=== PATIENT | male | born 1985 | race Two or more races ===

== ENCOUNTER 2021-06-10 12:06 | Emergency (ER) | payer SELFPAY ==
[~2021-06-10] VITALS: Ht 165.1 cm; Wt 137.7 kg
[2021-06-10 18:20] VITALS: BP 174/92
[2021-06-10] MEDS ORDERED: CLINDAMYCIN HCL 150 MG CAPSULE. PO ONE (18:45)
[2021-06-10] MEDS ORDERED: CLIN300C9 PO (18:50)
--- NOTE | 2021-06-10 18:50 | ED.ADGEN ---
Past Medical History Past Surgical History: No Surgical History Smoking Status: Current Every Day Smoker Alcohol Use: Occasionally General Adult EDM: Chief Complaint: TOE PROBLEM HPI: HPI: Patient is a 35 year old male coming in for pain, redness, and swelling to his left great toe. Patient states that he take his work boot off and his toes itching with scratching it. Yesterday noticed redness of his toe has been getting worse. Denies any known injury. 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 No systemic complaints. No past medical history. Review of Systems: Review of Systems: All other systems within normal limits except for as noted in the HPI Current Medications: Current Medications Medications (Trade) Dose Ordered Sig/Johan Start Time Stop Time Status Last Admin Dose Admin Clindamycin HCl (Cleocin) 450 mg 1X ONCE 06/10/21 18:45 06/10/21 18:46 Allergies: Allergies: Allergies Coded Allergies Type Severity Reaction Last Updated Verified No Known Drug Allergies 06/10/21 No Physical Exam: PE: Constitutional: Well developed, well nourished, no acute distress, non-toxic appearance. [] HENT: Normocephalic, atraumatic, bilateral external ears normal, nose normal. [] Eyes: PERRLA, conjunctiva normal, no discharge. [] Neck: No rigidity, supple, no stridor. [] Cardiovascular: Regular rate and rhythm, brisk cap refill [] Lungs & Thorax: Non labored symmetric respirations, no tachypnea or respiratory distress [] Abdomen: Soft, nondistended. Skin: Warm, dry, erythema of left great toe [] Back: Unremarkable Extremities: No deformities, range of motion grossly intact, no lower extremity edema. Swelling of left great toe extending streaks to dorsum of foot, no purulent drainage able to be expressed. Nail unremarkable. No open wounds. No swelling of the meta tarsal phalangeal joint of great toe [] Neurologic: Alert and oriented X 3, no focal deficits noted. [] Psychologic: Affect normal, judgement normal, mood normal. [] Current Patient Data: Vital Signs: Vital Signs Date Time Temp Pulse Resp B/P (MAP) Pulse Ox O2 Delivery O2 Flow Rate FiO2 06/10/21 18:20 98.4 97 22 174/92 (119) 98 Room Air 98.4 EKG: EKG: [] Heart Score: C/O Chest Pain: No Risk Factors: Risk Factors: DM, Current or recent (<one month) smoker, HTN, HLP, family history of CAD, obesity. Risk Scores: Score 0 - 3: 2.5% MACE over next 6 weeks - Discharge Home Score 4 - 6: 20.3% MACE over next 6 weeks - Admit for Clinical Observation Score 7 - 10: 72.7% MACE over next 6 weeks - Early Invasive Strategies Radiology/Procedures: Radiology/Procedures: [] Course & Med Decision Making: Course & Med Decision Making No trauma and acute onset, no indication for imaging. Toe is warm to the touch. Discussed return precautions and first dose of antibiotics given the emergency department. Patient states he has no history of MRSA or abscess. No fluctuance or evidence of paronychia Lyndsay Disclaimer: Lyndsay Disclaimer: This electronic medical record was generated, in whole or in part, using a voice recognition dictation system. Departure Departure Impression: Primary Impression: Cellulitis of great toe of left foot Disposition: HOME / SELF CARE / HOMELESS Condition: STABLE Referrals: NO PCP (PCP) Patient Instructions: Cellulitis, [id number] Scripts Clindamycin Hcl (CLINDAMYCIN HCL) 300 Mg Capsule 1 CAP PO QID for antibiotic for 7 Days, #28 CAP Prov: JERMAINE CRAWFORD MD 06/10/21 JERMAINE CRAWFORD MD Jun 10, 2021 18:50
== END 2021-06-10 19:05 | disposition home or self-care (01) ==
LOC: ER 12:06
DX: L03.032 Cellulitis of left toe (principal); F17.200 Nicotine dependence, unspecified, uncomplicated
CPT/HCPCS: 99283

== ENCOUNTER 2021-10-11 08:37 | Emergency (ER) | payer SELFPAY ==
[~2021-10-11] VITALS: Ht 172.7 cm; Wt 147.7 kg
[~2021-10-11 08:37] MED LIST: CLIN-94 PO
[2021-10-11 08:45] VITALS: BP 161/105
[2021-10-11] MEDS ORDERED: ERYT1OIN3 OD (09:10)
--- NOTE | 2021-10-11 09:10 | PHYS DOC ---
Past Medical History Past Surgical History: No Surgical History Smoking Status: Current Every Day Smoker Alcohol Use: Occasionally General Adult EDM: Chief Complaint: EYE PROBLEMS HPI: HPI: Patient is a 36 year old male who presents with bilateral eye redness for the past 2 days States that this started shortly after he was at a friend's house and the friend's dog licked his face and eyes repeatedly. No injuries or foreign bodies. No changes in visual acuity Mild discomfort of the eyes and some discharge that is more prevalent in the morning. He tried some [id number] eyedrops yesterday that did not improve his symptoms. No fevers or chills. No throat or ear pain. Does not wear contacts or corrective lenses. Review of Systems: Review of Systems: Constitutional: Denies fever or chills. [] Eyes: Denies change in visual acuity. Reports bilateral eye redness [] HENT: No sore throat or congestion. Respiratory: Denies cough or shortness of breath. [] Cardiovascular: Denies chest pain or edema. [] Integument: Denies rash. [] Neurologic: Denies headache, focal weakness or sensory changes. [] Heart Score: C/O Chest Pain: No Allergies: Allergies: Allergies Coded Allergies Type Severity Reaction Last Updated Verified No Known Drug Allergies 06/10/21 No Physical Exam: PE: Constitutional: Well developed, well nourished. HENT: Bilateral auditory canals and TMs normal, no facial swelling/edema, oropharynx clear without exudate Eyes: PERRLA, EOMI, bilateral conjunctival injection. 20/25 OD, 20/40 OS. Mild thick discharge. Cardiovascular:Heart rate regular rhythm, no murmur [] Lungs & Thorax: Bilateral breath sounds clear to auscultation [] Skin: Warm, dry, no erythema, no rash. [] Extremities: No tenderness, no cyanosis, no clubbing, ROM intact, no edema. [] Neurologic: Alert and oriented X 3, normal motor function, normal sensory function, no focal deficits noted. [] EKG: EKG: [] Radiology/Procedures: Radiology/Procedures: [] Course & Med Decision Making: Course & Med Decision Making Pertinent Labs and Imaging studies reviewed. (See chart for details) Patient a 36-year-old male presents with bilateral conjunctival redness with thick discharge after a dog licked his eyes. Visual acuity intact. No trauma or foreign body. We will treat as bacterial conjunctivitis. Given Rx for erythromycin ointment. Given information for an bariatric nurse should his symptoms not improve within the next week. Lyndsay Disclaimer: Lyndsay Disclaimer: This electronic medical record was generated, in whole or in part, using a voice recognition dictation system. Departure Departure Impression: Primary Impression: Bilateral conjunctivitis Disposition: HOME / SELF CARE / HOMELESS Condition: STABLE Referrals: NO PCP (PCP) Byron BUSH MD Call for a follow up appointment if not better in 7 days Patient Instructions: Bacterial Conjunctivitis Scripts Erythromycin Base (Erythromycin) 1 Gm Oint...g. 1 GM OD TID for 7 Days, #1 MISC 0 Refills Prov: JANINE ALVARADO MD 10/11/21 JANINE ALVARADO MD Oct 11, 2021 09:10
== END 2021-10-11 09:23 | disposition home or self-care (01) ==
LOC: ER 08:37
DX: H10.9 Unspecified conjunctivitis (principal); F17.200 Nicotine dependence, unspecified, uncomplicated
CPT/HCPCS: 99283